=== PATIENT | female | born 1975 | race Caucasian/White ===

== ENCOUNTER 2016-09-12 14:46 | Emergency (ER) | payer BC ==
--- NOTE | ~2016-09-12 | CR181 ---
[facility] A Service of [facility] & [facility] / [facility] RADIOLOGY TEXT RESULTS PATIENT: LYNETTE MORRIS LOCATION: SED : 71 UNIT #: [id number] AGE: [address]: Loree Lott SEX: F ORDER DR: [id number] [address] [address] [id number] E MR#: [id number] Acc #: [id number] NAME: LYNETTE MORRIS : 1975 SEX: F STUDY DATE/TIME: 09/12/2016 16:34 UNIT: SED ROOM: STUDY DESCRIPTION: CR Lumbar Spine 2 or 3 Views Attending Physician: Loree Lott Pa-C Ordering Physician: Loree Lott Pa-C Primary Care Physician: Smiley Flores MEDICAL IMAGING REPORT This report is preliminary unless electronic signature is present. EXAM Lumbar spine HISTORY Low back pain for 3 days. FINDINGS AP lateral and spot views are submitted. Spinal alignment is normal. Disc space and vertebral body height is maintained. Postop changes of prior lap band procedure. CONCLUSION Negative lumbosacral spine. Dictated by... Allen Miranda M.D. THIS IS AN ELECTRONICALLY VERIFIED REPORT Allen Miranda M.D. at 09/14/2016 7:14 AM Marleen TD: 09/12/2016 18:52 JOB #: [id number] MEDICAL IMAGING REPORT Page 1 of 1
[~2016-09-12 14:46] MED LIST: NO MEDICATIONS
[2016-09-12] MEDS ORDERED: LEXAPRO PO (14:59)
== END 2016-09-12 17:19 | disposition home or self-care (01) ==
LOC: SED 14:46
DX: S39.012A Strain of muscle, fascia and tendon of lower back, initial encounter (principal); Z79.899 Other long term (current) drug therapy; X58.XXXA Exposure to other specified factors, initial encounter; Y92.89 Other specified places as the place of occurrence of the external cause
CPT/HCPCS: 72100; 99283